=== PATIENT | female | born 1965 | race Caucasian/White ===

== ENCOUNTER 2017-06-06 11:44 | Day surgery (SDC) | payer MEDICAID, SELFPAY ==
--- NOTE | 2017-06-04 11:02 | EKG12_ITS ---
Test Reason : PRE-OP Blood Pressure : / mmHG Vent. Rate : 074 BPM Atrial Rate : 074 BPM P-R Int : 166 ms QRS Dur : 088 ms QT Int : 408 ms P-R-T Axes : 023 006 029 degrees QTc Int : 452 ms Normal sinus rhythm Normal ECG Confirmed by DECLAN BELTRÁN, CELIO ([id number]), assignment editor SHANICE MARCH ([id number]) on 06/07/2017 11:31:01 AM Referred By: Yosvany Willams Confirmed By:CELIO MANRIQUEZ MD
[2017-06-04 11:33] LABS: Hematocrit 25.1 % (37-47); Hemoglobin 7.7 g/dl (12.0-15.0); Mean Corp Hgb Conc 30.7 g/gl (32-36); Mean Corpuscular Hgb 27.3 pg (27.0-32.0); Mean Platelet Vol. 9.9 fl (6.2-12.0); Platelet Count 230 K/mm3 (150-450); RBC Distribution Width CV 16.3 % (11.6-14.6); RBC Distribution Width SD 53.4 fl (35.1-43.9); Red Blood Count 2.82 M/mm3 (4.2-5.4); White Blood Count 7.9 K/mm3 (4.4-11.0)
[2017-06-04 11:39] LABS: Scan Indicated on CBC? Y/N NO
[2017-06-04 11:55] LABS: Anion Gap 10 (5-15); BUN 69 mg/dL (7-18); BUN/Creat Ratio 18.1 RATIO (10-20); Calcium,Total 9.4 mg/dL (8.5-10.1); Chloride 101 mmol/L (98-107); Creatinine, Serum 3.81 mg/dL (0.55-1.02); EST Glomerular Filtration Rate 13 mL/min (>60); Est Glom Filt Rate - Afr Amer 16 mL/min (>60); Glucose 111 mg/dL (70-110); Potassium 4.1 mmol/L (3.5-5.1); Sodium Level 138 mmol/L (136-145)
[2017-06-06 12:07] VITALS: BP 156/86; PULSE 66; RESP 16; TEMP 36.3; O2SAT 93; BMI 52.4
[2017-06-06 12:35] LABS: Bedside Glucose 82 mg/dL (70-110)
--- NOTE | 2017-06-06 13:30 | PCM.DC.FIST ---
Discharge Diet: Renal Diet Discharge Activity: May Not Drive - for 2-3 days or while taking narcotic pain medications., May Shower, May Not Shower, May Take a Tub Bath - in 5 days. Lifting Restrictions: 5 pounds Keep extremity elevated above heart level: - - Keep arm elevated above the heart level for 3 days. Additional Activity Instructions:: Exercise hand vigorously with a stress ball. Call your doctor if your incision/area has: Continuous Slow Oozing, Sudden Increased Bleeding - apply pressure and call your doctor., Increased Pain/ Swelling, Increased Redness, Foul Smelling Discharge Call your doctor if you observe: Fever of 101 or Higher Suture Line Care: Avoid Pulling/Pushing, Avoid Pinching/Bending Cleanse incision/area with: Keep Dressing Clean & Dry Additional Dressing/Incision Instructions:: Elevate your left arm for comfort. Please keep the dressings clean and dry. You may change the dressings in 3 days. Allergies/Adverse Reactions: Allergies allopurinol Allergy (Verified 05/30/17 15:26) Hair loss, rash, dry and flaky skin amlodipine besylate [From Norvasc] Allergy (Verified 05/30/17 15:26) Rash hydrochlorothiazide Allergy (Verified 05/30/17 15:26) Rash quinapril HCl [From Accupril] Adverse Reaction (Verified 05/30/17 15:26) COUGH Medications to take at Discharge Aspirin [Aspirin, Baby] 81 mg PO DAILY@0800 12/18/16 Atorvastatin Calcium [Lipitor] 80 mg PO QHS 12/18/16 B Complex with Vitamin C [B-Complex Plus Vitamin C] 1 ea PO DAILY 12/18/16 Carvedilol [Coreg (Beta Tirso)] 25 mg PO BID 12/18/16 Febuxostat [Uloric] 40 mg PO DAILY 12/18/16 Metolazone [Zaroxolyn] 5 mg PO DAILY 12/18/16 Omeprazole [Prilosec] 20 mg PO DAILY 12/18/16 Potassium Chloride [Klor-Con M20] 20 meq PO DAILY 12/18/16 clonidine HCl 0.1 mg tablet 0.1 mg PO BID tab 05/30/17 furosemide 80 mg tablet 80 mg PO BID tab 05/30/17 hydralazine 100 mg tablet 100 mg PO TID tab 05/30/17 insulin aspart 100 unit/mL subcutaneous pen 4 unit SC TID ml 05/30/17 insulin glargine 100 unit/mL (3 mL) subcutaneous pen 6 unit SC QHS ml 05/30/17 levothyroxine 100 mcg capsule 100 mcg PO QDAY cap 05/30/17 polysaccharide iron complex 150 mg iron capsule 150 mg PO BID cap 05/30/17 Hydrocodone Bitart/Apap 5-325 [[place] 5MG-325MG] 1 tab PO Q6H PRN PRN #6 tab 06/06/17 The following prescriptions were given: Hydrocodone Bitart/Apap 5-325 [[place] 5MG-325MG] 1 tab PO Q6H PRN PRN #6 tab PRN Reason: Pain Primary Care Physician: Rachel Salguero, [employer] [Primary Care Provider] - Please Follow Up With: Yosvany Willams MD - [phone] When: Call to make an appointment for suture removal and follow up in 10 days.
[2017-06-06] MEDS: Bupivacaine Mpf 0.5% 30 ML VIAL (14:20)
--- NOTE | 2017-06-06 15:56 | PCM.OPRPT ---
Problem List (1) CKD (chronic kidney disease) stage 3, GFR 30-59 ml/min Status: Chronic Report of Operation Date of Procedure: 06/06/17 Pre-Operative Diagnosis: Chronic renal insufficiency stage IV Post-Operative Diagnosis: Same Surgery/Procedure Performed:: Transposition left forearm cephalic vein to radial artery arteriovenous fistula creation Description of Surgical Findings:: Timeout and informed consent was obtained. 51-year-old female was taken the operating place when table underwent monitored anesthesia care and local anesthetic. 31 cc of 1% lidocaine mixed 50-50 with 0.5% Marcaine was used as local anesthetic as well as 9 cc of 0.5% lidocaine. Local was instilled. A longitudinal incision was made at the left forearm based upon ultrasound mapping that are performed preoperatively. Tedious sharp and blunt dissection was used to harvest the cephalic vein. Because of the patient's super morbid obesity this was rather deep. Side branches were secured with 4-0 Vicryl ligatures as well as hemoclips. The vein was dissected free to just proximal to the wrist up to the antecubital space. I then measured the length of the vein. Identified in appropriate position overlying the radial artery made a longitudinal incision and dissected down upon a heavily calcified radial artery. I was able to get circumferential control. Place a tunneler from the radial artery to the antecubital space. I ligated the vein distally with hemoclips this was at a branch point I was able to spatulated the vein making for larger anastomosis. I tunneled the vein then from the antecubital space to the wrist. The patient then received 10,000 units of heparin. Put peripheral vascular clamps on the radial artery. 11 blade was used to make an arteriotomy which was extended with Hammer scissors again quite calcified vessel was encountered but I felt that I could and anastomosis. A end-to-side anastomosis created with the vein with a running 7-0 Prolene. I felt that I had good approximation closure. Initial flow seem to be good with a good Doppler signal throughout. Hemostasis was further achieved with utilization of Surgicel. Patient received a total of 30 mg of protamine. The surgery still was removed from the main excision site I did leave some small amount of Surgicel around the anastomosis. The wounds were closed with interrupted 3-0 Vicryl subdermal stitches. Running septic or 4-0 Monocryl. Steri-Strips, Telfa, soft roll, Darvin wrap dressings applied. Sponge instrument and needle counts were reported the surgeon be correct. Blood loss was 200 cc. She tired procedure well hand was viable to completion application she was taken to the recovery room in satisfactory condition. Blood loss 200. Specimens none. Drains none. Yosvany Willams M.D., F.A.C.S. Type of Anesthesia:: Local MAC Anesthesiologist: Korey Aguirre
[2017-06-06 16:20] VITALS: BP 123/75; BP 156/86; PULSE 65; RESP 18; TEMP 36.3; O2SAT 93
[2017-06-06 16:25] VITALS: BP 123/75; BP 156/86; PULSE 64; RESP 18; O2SAT 94
[2017-06-06 16:30] VITALS: BP 134/77; BP 156/86; PULSE 64; RESP 18; O2SAT 93
[2017-06-06 16:36] VITALS: BP 128/80; BP 156/86; PULSE 63; RESP 18; TEMP 36.3; O2SAT 93
[2017-06-06 17:52] VITALS: BP 156/86
== END 2017-06-06 17:58 | disposition home or self-care (01) ==
LOC: SDC 11:45 → AC 11:46
PROVIDERS: Family Provider Nurse Practitioner Family; PCP Nurse Practitioner Family; Visit Provider Surgery
PROC: (CPT 36820; principal; 2017-06-06 13:25)
DX: I12.0 Hypertensive chronic kidney disease with stage 5 chronic kidney disease or end stage renal disease (principal); E11.22 Type 2 diabetes mellitus with diabetic chronic kidney disease; N18.6 End stage renal disease; E11.610 Type 2 diabetes mellitus with diabetic neuropathic arthropathy; Z79.4 Long term (current) use of insulin; Z79.82 Long term (current) use of aspirin; Z79.899 Other long term (current) drug therapy; G47.30 Sleep apnea, unspecified; K21.9 Gastro-esophageal reflux disease without esophagitis; D64.9 Anemia, unspecified; E66.01 Morbid (severe) obesity due to excess calories; Z68.43 Body mass index [BMI] 50.0-59.9, adult; E03.9 Hypothyroidism, unspecified; Z85.42 Personal history of malignant neoplasm of other parts of uterus; Z90.710 Acquired absence of both cervix and uterus; M10.39 Gout due to renal impairment, multiple sites; I89.0 Lymphedema, not elsewhere classified; I70.244 Atherosclerosis of native arteries of left leg with ulceration of heel and midfoot; L97.429 Non-pressure chronic ulcer of left heel and midfoot with unspecified severity
CPT/HCPCS: 36820; 36415; 80048; 82962; 85027; 93005

== ENCOUNTER 2017-06-16 14:02 | Emergency (ER) | payer MEDICAID, SELFPAY ==
[2017-06-16 14:03] VITALS: BP 183/90; PULSE 82; RESP 18; TEMP 37; O2SAT 95; BMI 52.4
[2017-06-16 14:57] LABS: Absolute Lymphocyte Count 1.19 X10^3/ul (0.83-4.51); Absolute Neutrophil Count 5.6 X10^3/uL (2.0-7.7); Basophil# 0.01 X10^3/uL; Basophil% 0.1 % (0-1); Eosinophil# 0.17 X10^3/uL; Eosinophils% 2.3 % (0-5); Hematocrit 25.2 % (37-47); Hemoglobin 7.6 g/dl (12.0-15.0); Lymphocyte # 1.19 X10^3/ul (4.0); Mean Corp Hgb Conc 30.2 g/gl (32-36); Mean Corpuscular Hgb 27.6 pg (27.0-32.0); Mean Corpuscular Volume 91.6 fL (81-99); Mean Platelet Vol. 9.5 fl (6.2-12.0); Monocyte# 0.44 X10^3/uL; Monocyte% 5.9 % (0-10); Neutrophil % 75.4 % (47-70); Platelet Count 198 K/mm3 (150-450); RBC Distribution Width CV 17.9 % (11.6-14.6); RBC Distribution Width SD 58.1 fl (35.1-43.9); Red Blood Count 2.75 M/mm3 (4.2-5.4); White Blood Count 7.4 K/mm3 (4.4-11.0)
[2017-06-16 14:58] LABS: POSITIVE COUNT NO; POSITIVE DIFFERENTIAL NO; POSITIVE MORPHOLOGY NO
[2017-06-16] MEDS: Meclizine HCl 25 MG Tablet PO (15:11)
[2017-06-16] MEDS: Ondansetron 4 MG/2 ML Vial IV (15:11)
[2017-06-16 15:15] LABS: Anion Gap 7 (5-15); BUN 60 mg/dL (7-18); BUN/Creat Ratio 16.3 RATIO (10-20); Calcium,Total 9.5 mg/dL (8.5-10.1); Chloride 105 mmol/L (98-107); Creatinine, Serum 3.69 mg/dL (0.55-1.02); EST Glomerular Filtration Rate 14 mL/min (>60); Est Glom Filt Rate - Afr Amer 17 mL/min (>60); Estimated Creatinine Clearance 14.59 ml/min; Glucose 81 mg/dL (70-110); Potassium 4.1 mmol/L (3.5-5.1); Sodium Level 139 mmol/L (136-145)
--- NOTE | 2017-06-16 15:35 | ED.DCSUM_ITS ---
- ER Visit Summary Date of Service: 06/16/17 Chief Complaint: Vertigo History of Present Illness: The patient is a [address] Salguero and Dr. Cardenas. She reports that she has vertigo that has been intermittent for several months. States the most recent episode began this morning. She denies any ringing or roaring in her ears. No ear pain. No change in her hearing. No headache, slurred speech, or double vision. Patient denies any symptoms now. She reports it is increased with turning her head quickly. Patient reports that she has chronic peripheral edema and that this is actually better than usual. Review of systems: General: No fever, chills, cold sweats. Cardiovascular: No chest pain, palpitations. Respiratory: No cough, shortness of breath, dyspnea on exertion. Gastrointestinal: No abdominal pain, nausea, vomiting, diarrhea, melena, or hematochezia. Genitourinary: No dysuria, frequency, hematuria. Skin: No rash. Neuro: No headache, numbness, weakness. Physical Examination: Vitals: Stable. Afebrile. General: Well-nourished and well-developed. Head: Normocephalic atraumatic. HEENT: TMs are within normal limits bilaterally. Neck: Supple, no lymphadenopathy. No JVD. Nontender. Cardiovascular: Regular rate and rhythm. No murmurs. Respiratory: No respiratory distress. Clear to auscultation bilaterally. Abdominal: Soft, nontender, nondistended, normal bowel sounds. No guarding, rebound, or peritoneal signs. Back: Nontender. Extremities: Nontender, symmetric 3+ pitting edema of her lower extremities bilaterally. Skin: Normal color, no rash. Neurologic: Alert and oriented ?3. Cranial nerves II through XII are intact. Normal strength and sensation. Psych: Normal affect. Test Results: CBC is remarkable for an H&H of 7.6 and 25.2, segmented neutrophils of 75, lymphocytes of 16. Hemoglobin ranged between 7.6 and 7.9 all of 2017. Chem-7 is more for BUN of 16 creatinine of 3.69. This is similar to where her creatinine was in 2017 as well. Emergency Department Course and Treatment: Patient was treated with Antivert p.o. and Zofran IV. She is resting comfortably and reports her vertigo has resolved. She is able to ambulate without difficulty. Treatment Plan: Patient will be discharged with Antivert and Zofran. Instructed to follow-up with her primary care physician 1-2 days if not improving. Return to the emergency department for any worsening symptoms. Disposition: To home in improved and stable condition. Impression: 1. Vertigo, peripheral. 2. Anemia, chronic. 3. Chronic renal insufficiency. This note was generated with [employer] dictation software. It may contain incorrect words, spelling, and punctuation that were not noted in review of the chart prior to signing ED Disposition - Plan for ED Patient: Disposition: Home or Assisted Living Chief Complaint: Dizziness Instructions: ED Vertigo Unspecified Prescriptions: Ondansetron [Zofran Odt] 4 mg PO Q8H PRN PRN #10 tablet PRN Reason: Nausea Meclizine HCl [Antivert] 25 mg PO 4X/DAY PRN PRN #20 tablet PRN Reason: Dizziness Referrals: Rachel Salguero, [employer] CUTTER MACHINE-C [Primary Care Provider] - 1-2 Days if not improving
[2017-06-16 16:00] VITALS: BP 142/87; PULSE 87
== END 2017-06-16 16:02 | disposition home or self-care (01) ==
LOC: ED 14:53
PROVIDERS: Emergency Provider Emergency Medicine; Family Provider Nurse Practitioner Family; PCP Nurse Practitioner Family
DX: H81.399 Other peripheral vertigo, unspecified ear (principal); D64.9 Anemia, unspecified; I12.9 Hypertensive chronic kidney disease with stage 1 through stage 4 chronic kidney disease, or unspecified chronic kidney disease; N18.9 Chronic kidney disease, unspecified; E11.22 Type 2 diabetes mellitus with diabetic chronic kidney disease; Z79.4 Long term (current) use of insulin; E78.00 Pure hypercholesterolemia, unspecified; Z82.49 Family history of ischemic heart disease and other diseases of the circulatory system; Z79.82 Long term (current) use of aspirin; Z79.899 Other long term (current) drug therapy
CPT/HCPCS: 80048; 85025; 96374; 99284; A4216; J2405

== ENCOUNTER → 2017-06-19 10:02 | Outpatient (CLI) | payer MEDICAID, SELFPAY ==
[2017-06-19 10:05] VITALS: BP 119/69; PULSE 82; RESP 18; TEMP 35.6; O2SAT 90; BMI 52.4
== END ==
PROVIDERS: Family Provider Family Medicine; PCP Nurse Practitioner Family; Visit Provider Internal Medicine Nephrology
DX: N18.4 Chronic kidney disease, stage 4 (severe) (principal); D63.1 Anemia in chronic kidney disease
CPT/HCPCS: 96365; 96366; J1756; J7050; A4216

== ENCOUNTER → 2017-06-26 10:17 | Outpatient (CLI) | payer MEDICAID, SELFPAY ==
[2017-06-26 10:40] VITALS: BP 145/94; PULSE 68; RESP 18; TEMP 36; O2SAT 95
== END ==
PROVIDERS: Family Provider Family Medicine; PCP Nurse Practitioner Family; Visit Provider Internal Medicine Nephrology
DX: N18.4 Chronic kidney disease, stage 4 (severe) (principal); D63.1 Anemia in chronic kidney disease
CPT/HCPCS: 96365; 96366; J1756; J7050; A4216